=== PATIENT | female | born 1950 | race Native Hawaiian/Other Pacific Islander ===

== ENCOUNTER 2017-07-05 08:15 | Day surgery (SDC) | payer OTHER ==
[2017-06-22 10:14] VITALS: BMI 23.8
[2017-07-05] MEDS ORDERED: Lactated Ringer's 1,000 ML IV ONE (11:28)
[2017-07-05] MEDS ORDERED: Midazolam 2 MG/2 ML VIAL ONE (11:30)
[2017-07-05] MEDS ORDERED: Propofol 10 mg/ml Inj (20 ML) ONE ×2 (11:30→11:53)
[2017-07-05] MEDS ORDERED: Bupivacaine-Epi 0.25%-1:200,000 PF Inj ONE (11:34)
[2017-07-05] MEDS: ceFAZolin IV 1 gm in Dextrose 2 GM/100 ML BAG IVPB ONE ×2 (11:35→11:48)
[2017-07-05] MEDS ORDERED: Lidocaine 2% Inj (20ml) ONE (11:35)
[2017-07-05] MEDS ORDERED: ePHEDrine 50 mg/ml Inj ONE (12:17)
[2017-07-05] MEDS ORDERED: HYDROmorphone 0.5 mg/0.5 ml ISec IVP PRN ×2 (12:28→13:05)
--- NOTE | 2017-07-05 12:54 | PCM.SURG1 ---
Surgeon's Initial Post Op Note - Surgeon's Notes Surgeon: Dr. Centeno Moto Mix Operator: Dr. Peng PGY4, PGY1 Type of Anesthesia: General IV Pre-Operative Diagnosis: Lipoma of neck Operative Findings: 7cm x 3cm depth Post-Operative Diagnosis: same Operation Performed: Excision of Lipoma of of neck Specimen/Specimens Removed: posterior neck mass Estimated Blood Loss: EBL {In ML}: 5 Drains Used: No Drains Post-Op Condition: Good Date of Surgery/Procedure: 07/05/17 Time of Surgery/Procedure: 12:00
[2017-07-05] MEDS ORDERED: Oxycodone/Acetaminophen 5/325 mg Tab PO ONE (14:00)
[2017-07-05 14:45] VITALS: BP 125/79; PULSE 74; RESP 18; TEMP 97.6; O2SAT 96
--- NOTE | 2017-07-05 22:03 | OP ---
PROCEDURE DATE: PREOPERATIVE DIAGNOSIS: Lipoma of the left posterior neck and scalp area. The size is 4 x 4 cm. POSTOPERATIVE DIAGNOSIS: Lipoma of the left posterior neck and scalp area. The size is 4 x 4 cm. PROCEDURE: 1. Excision of lipoma of left posterior neck and the scalp, size is 5 x 4 cm. 2. Complex layered closure of the wound 5 x 2 cm.. SURGEON: Dr. Diane. EP[employer] CADENCE SPECIALISTS: Víctor Vial, PGY-3 resident and Gordy, PGY-1 resident. TYPE OF ANESTHESIA: Local anesthesia plus sedation. ESTIMATED BLOOD LOSS: 10 mL. DRAIN: None. COMPLICATIONS: None. SPECIMEN: The large lipoma was sent for the pathology. INTRAOPERATIVE FINDINGS: The patient had intramuscular lipoma of the posterior neck and the scalp area of approximately 5 x 4 cm size and on intraoperative steps. This 66-year-old male was diagnosed with lipoma of the left posterior neck and the scalp area and the patient was brought to the OR and placed on the right lateral position, the scalp area was prepped and draped in the usual sterile fashion. A transverse 5 cm incision was made after incising skin and subcutaneous tissue. Upper and lower flap was created and lipoma was identified. The lipoma was identified. The lipoma dissection was done up to the underlying fascia as well as superiorly to the scalp bone and the inferiorly up to the neck muscles and laterally the dissection was continued to dissect the lipoma of the underlying muscle as well as the scalp layer and lipoma was sent today for pathology. Hemostasis was achieved. The wound was closed in multiple layer. The upper flap was sutured with the underlying fascia and lower flap was sutured in the underlying fascia. Another layer of the subcutaneous was taken and it was sutured with the underlying fascia to remove the space and now another layer of the subcutaneous with 2-0 Vicryl, skin with a 4-0 Monocryl, and another layer of the skin with the 4-0 Nylon and dry sterile dressing was applied. The patient tolerated the procedure well. Count of the instrument was correct. There was no apparent complication. The patient reversed from sedation. Sent to the postanesthesia care unit in the stable condition. Juaquin Diane MD
== END 2017-07-05 14:35 | disposition home or self-care (01) ==
LOC: C.SDS 08:15
PROVIDERS: ATTEND Surgery Surgical Critical Care
DX: D17.0 Benign lipomatous neoplasm of skin and subcutaneous tissue of head, face and neck (principal)
CPT/HCPCS: 11426; 13132; 82948; 88304; J0690; J1170; J2001; J2250; J2704; J3010; J7120

== ENCOUNTER → 2017-10-19 | Day surgery (SDC) | payer OTHER ==
[2017-06-22 10:14] VITALS: BMI 23.8
--- NOTE | 2017-10-19 11:12 | CP.SDSHP ---
Same Day Surgery H & P - History Proposed Procedure: US guided FNA of left thyroid nodule Pre-Op Diagnosis: Left thyroid nodule - Allergies Allergies: Allergies codeine Adverse Reaction (Intermediate, Verified 06/22/17 12:28) NAUSEA UPSET STOMACH - Physical Exam Mental Status: Alert & Oriented x3 Neuro: WNL Heart: WNL - Impression Impression: Pt with a 1 cm left thyroid nodule refered for US guided FNA. Plan US guided FNA of left thyroid sabiha, Pt. Evaluated Today:Candidate for Anesthesia & Procedure: No - Date & Time Date: 10/19/17 Time: 11:00 Short Stay Discharge - Short Stay Discharge Admitting Diagnosis/Reason for Visit: THYROID NODULE Disposition: HOME/ ROUTINE
--- NOTE | 2017-10-19 11:13 | PCM.SURG1 ---
Surgeon's Initial Post Op Note - Surgeon's Notes Surgeon: Alexis Lyn MD Rubbish Collector: NONE Type of Anesthesia: Local Pre-Operative Diagnosis: Left thyroid nodule Operative Findings: US showed a solid 1 cm left lower pole thyroid nodule. Post-Operative Diagnosis: Left thyroid nodule Operation Performed: US guided FNA Specimen/Specimens Removed: 25 g FNA x 4 passes Estimated Blood Loss: EBL {In ML}: 0 Blood Products Given: N/A Drains Used: No Drains Post-Op Condition: Good Date of Surgery/Procedure: 10/19/17 Time of Surgery/Procedure: 11:10
--- NOTE | 2017-10-19 13:26 | US ---
PROCEDURE: Date of Procedure: 10/19/2017 PROCEDURE: 1. Ultrasound guided FNA of left thyroid nodule, CPT 58999 2. Ultrasound guidance for FNA, 16695 Medications: 3cc 1% Lidocaine HISTORY: Enlarged left thyroid nodule. TECHNIQUE: Following informed consent and procedure time-out, a limited ultrasound patient's neck confirmed the presence of a 1.03 cm left thyroid nodule which is predominantly solid. After the patient's neck was prepped and draped in the usual sterile fashion, the skin was anesthetized with 1% lidocaine. Ultrasound-guided fine needle aspiration was then performed of the dominant left thyroid nodule. A total of 4 passes were made into the nodule with 25 gauge needle under ultrasound guidance. The FNA specimen was sent for routine pathology. Post biopsy ultrasound showed no hematoma. IMPRESSION: Ultrasound-guided FNA of the dominant left thyroid nodule.
== END | disposition home or self-care (01) ==
LOC: C.SPRAD 09:14
PROVIDERS: ATTEND Radiology Vascular & Interventional Radiology
DX: E04.1 Nontoxic single thyroid nodule (principal)